=== PATIENT | male | born 1995 | race Caucasian/White ===

== ENCOUNTER 2018-02-28 23:25 | Emergency (ER) | payer SELFPAY ==
[~2018-02-28] VITALS: Ht 167.6 cm; Wt 86.2 kg
[2018-03-01] MEDS ORDERED: IBUPROFEN 600MG TABLET PO ONE (00:30)
[2018-03-01] MEDS ORDERED: BACITRACIN ZINC OINT UDPKT TOP ONE (01:00)
[2018-03-01] MEDS ORDERED: ACETAMINOPHEN WITH CODEINE 300/30MG TABLET PO STA (01:12)
[2018-03-01 01:36] VITALS: BP 131/86
== END 2018-03-01 01:57 | disposition home or self-care (01) ==
LOC: EDBD 23:25 → ER 23:25
DX: T23.032A Burn of unspecified degree of multiple left fingers (nail), not including thumb, initial encounter (principal); R03.0 Elevated blood-pressure reading, without diagnosis of hypertension; F12.10 Cannabis abuse, uncomplicated; F17.200 Nicotine dependence, unspecified, uncomplicated; X10.2XXA Contact with fats and cooking oils, initial encounter; Y93.G3 Activity, cooking and baking; Y92.010 Kitchen of single-family (private) house as the place of occurrence of the external cause
CPT/HCPCS: 99284